=== PATIENT | male | born 2000 | race Caucasian/White ===

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

== ENCOUNTER 2023-08-10 02:38 | Outpatient (CLI) | payer MEDICAID, SELFPAY ==
[2023-08-10 14:16] LABS: HCT 45.2 % (40.0-50.0); HGB 15.6 g/dL (13.5-17.5); MCH 28.9 pg (27.0-33.0); MCHC 34.5 % (32.0-36.0); MCV 84 fL (80-95); Platelet Count 294 10^3/uL (130-400); RDW 12.8 % (11.8-14.1); RDW-SD 38.5 fL; WBC 9.61 10^3/uL (4.4-10.8)
[2023-08-10 14:31] LABS: Hemoglobin A1C 5.5 % (<5.7)
[2023-08-10 14:48] LABS: Anion Gap 10.2 mmol/L (3-11); BUN 10 mg/dL (7-18); CO2 26.8 mmol/L (21.0-32.0); CREATININE 0.9 mg/dL (0.70-1.30); Calcium 9.6 mg/dL (8.5-10.1); Calculated LDL 112 mg/dL (<100); Chloride 106 mmol/L (98-107); Cholesterol 172 mg/dL (<200); Estimated GFR 123.84 (mL/min/1.73m2); Glucose 98 mg/dL (74-106); HDL Cholesterol 42 mg/dL (40-60); Potassium 3.7 mmol/L (3.5-5.1); Sodium 143 mmol/L (136-145); TSH (W/Ref FT4) 2.63 uIU/mL (0.36-3.74); Triglyceride 93 mg/dL (<150)
== END 2023-08-10 02:39 | disposition home or self-care (01) ==
PROVIDERS: PCP Nurse Practitioner Family; Visit Provider Nurse Practitioner Family
DX: Z00.00 Encounter for general adult medical examination without abnormal findings (principal); F90.0 Attention-deficit hyperactivity disorder, predominantly inattentive type; J45.20 Mild intermittent asthma, uncomplicated; G43.009 Migraine without aura, not intractable, without status migrainosus; G47.33 Obstructive sleep apnea (adult) (pediatric); R03.0 Elevated blood-pressure reading, without diagnosis of hypertension
CPT/HCPCS: 36415; 80048; 80061; 85027; 83036; 84443